=== PATIENT | female | born 1995 | race Caucasian/White ===

== ENCOUNTER → 2017-08-05 | Outpatient (CLI) | payer OTHER ==
[~2017-08-05] MED LIST: OPTIRAY 320 IV PRN
--- NOTE | 2017-08-05 16:03 | DIAGNOSTIC IMAGING REPORT ---
CT ANGIOGRAPHY OF THE CHEST, PULMONARY EMBOLUS PROTOCOL CLINICAL HISTORY: Chest pain. Shortness of breath. Elevated d-dimer. COMPARISON STUDY: No previous studies for comparison. TECHNIQUE: Following IV administration of 92 mL of Optiray-320, helical axial images of the chest were obtained utilizing the pulmonary embolus protocol. Maximal intensity projections and sagittal and coronal reformats were viewed on an independent 3D workstation. IV contrast was administered without complication. A dose lowering technique was utilized adhering to the principles of ALARA. CT DOSE: 244.25 mGycm FINDINGS: No pulmonary emboli are identified. There is no evidence for thoracic aortic dissection. The size of the heart is normal. There is no pericardial effusion. No enlarged axillary, mediastinal or hilar lymph nodes are present. The central airways are patent. No pneumothorax or pleural effusion is present. There is no consolidation to suggest pneumonia. The lungs are clear. Bony thorax and upper abdomen are unremarkable. IMPRESSION: 1. No pulmonary emboli identified. 2. No acute intrathoracic findings. Electronically signed by: Deyvi Velasquez M.D. 08/05/2017 4:01 PM Dictated Date/Time: 08/05/2017 3:49 PM
== END ==
LOC: C.CTS 15:07
PROVIDERS: ATTEND Internal Medicine
DX: R79.1 Abnormal coagulation profile (principal); R06.02 Shortness of breath